=== PATIENT | female | born 1950 | race Caucasian/White ===

== ENCOUNTER 2020-04-19 07:33 | Outpatient (RCR) | payer MEDICARE, OTHER, SELFPAY ==
[2014-09-02 10:27] VITALS: BMI 28.9
== END 2020-04-19 23:59 ==
LOC: IMMUN 07:33
PROVIDERS: Referring Provider Family Medicine; Visit Provider Family Medicine
DX: Z23 Encounter for immunization (principal)
CPT/HCPCS: 0011A; 0012A